=== PATIENT | male | born 1985 | race Caucasian/White ===

== ENCOUNTER 2020-01-21 10:54 | Emergency (ER) | payer SELFPAY ==
--- NOTE | 2020-01-21 11:22 | ER Document Report ---
ED Extremity Problem, Lower - General Chief Complaint: Knee Injury Stated Complaint: LEFT KNEE PAIN, SWELLING Time Seen by Provider: 01/21/20 11:16 Primary Care Provider: MARIA ISABEL GRADY JR, DO [ACTIVE PROVISIONAL STAFF] - Follow up in 3-5 days Mode of Arrival: Wheelchair Information source: Patient Notes: 34-year-old male presented to ED for complaint of left knee pain for few weeks. He states a few weeks ago he was jumping on a trampoline and injured his knee. He states he has not gotten better with [id number] treatment. He states he came to the emergency room today to find out why his knee is swollen and very painful. He is alert oriented respirations regular and unlabored speaking in full sentences. He does have a history of multiple fractures to fingers elbows scapula ankles wrist ribs but is not had any surgeries. He does smoke 3 to 4 cigarettes a day does not drink or do any street drugs. - HPI Patient complains to provider of: Injury, Pain, Swelling Location: Knee - Left Occurred: Other - Few weeks Where: Outdoors, Other - Sisters house Onset/Duration: Gradual Quality of pain: Pressure Severity: Severe Pain Level: 5 Context: Fell Recent injury: Yes Associated symptoms: Painful ambulation Exacerbated by: Hanging down, Movement, Walking Relieved by: Elevation, Ice - Related Data Allergies/Adverse Reactions: No Known Allergies Allergy (Verified 01/21/20 11:12) Past Medical History - General Information source: Patient - Social History Smoking Status: Current Every Day Smoker Cigarette use (# per day): Yes - 3 to 4 cigarettes a day Chew tobacco use (# tins/day): No Smoking Education Provided: Yes - 4 minutes Frequency of alcohol use: None Drug Abuse: None Lives with: Family Family History: Reviewed & Not Pertinent Patient has homicidal ideation: No - Past Medical History Cardiac Medical History: Reports: None Pulmonary Medical History: Reports: None EENT Medical History: Reports: None Neurological Medical History: Reports: None Endocrine Medical History: Reports: None Renal/ Medical History: Reports: None Malignancy Medical History: Reports None GI Medical History: Reports: None Musculoskeletal Medical History: Reports Hx Musculoskeletal Trauma Skin Medical History: Reports None Psychiatric Medical History: Reports: None Traumatic Medical History: Reports: Hx Fractures - Fingers toes elbow scapular ankle wrist and ribs Infectious Medical History: Reports: None Surgical Hx: Negative Past Surgical History: Reports: None - Immunizations Immunizations up to date: Yes Hx Diphtheria, Pertussis, Tetanus Vaccination: Yes Review of Systems - Review of Systems Constitutional: No symptoms reported EENT: No symptoms reported Cardiovascular: No symptoms reported Respiratory: No symptoms reported Gastrointestinal: No symptoms reported Genitourinary: No symptoms reported Male Genitourinary: No symptoms reported Musculoskeletal: Joint pain - Pain and swelling to the left knee, Joint swelling - Left knee Skin: No symptoms reported Hematologic/Lymphatic: No symptoms reported Neurological/Psychological: No symptoms reported -: Yes All other systems reviewed and negative Physical Exam - Vital signs Vitals: Temp Pulse Resp BP Pulse Ox 98.5 F 65 20 116/73 97 01/21/20 10:59 01/21/20 10:59 01/21/20 10:59 01/21/20 10:59 01/21/20 10:59 Interpretation: Normal - General General appearance: Appears well, Alert - HEENT Head: Normocephalic, Atraumatic Eyes: Normal Pupils: PERRL - Respiratory Respiratory status: No respiratory distress Chest status: Nontender Breath sounds: Normal Chest palpation: Normal - Cardiovascular Rhythm: Regular Heart sounds: Normal auscultation Murmur: No - Abdominal Inspection: Normal Distension: No distension Bowel sounds: Normal Tenderness: Nontender Organomegaly: No organomegaly - Back Back: Normal, Nontender - Extremities General upper extremity: Normal inspection, Nontender, Normal color, Normal ROM, Normal temperature General lower extremity: Normal color, Normal temperature. No: Jacob's sign Knee: Tender - Left, Joint effusion, Pain with ROM - Left, Patellar tendon intact, Tender joint line - Left. No: Deformity, Dislocation, Drawer's test instability, Ecchymosis, Instability, Laceration, Laxity with valgus stress, Laxity with varus stress, Popliteal fossa tender - Neurological Neuro grossly intact: Yes Cognition: Normal Orientation: AAOx4 Townley Coma Scale Eye Opening: Spontaneous Townley Coma Scale Verbal: Oriented Fabien Coma Scale Motor: Obeys Commands Fabien Coma Scale Total: 15 Speech: Normal Motor strength normal: LUE, RUE, LLE, RLE Sensory: Normal - Psychological Associated symptoms: Normal affect, Normal mood - Skin Skin Temperature: Warm Skin Moisture: Dry Skin Color: Normal Course - Re-evaluation Re-evalutation: 01/21/20 12:42 Discussed x-ray with patient and report of x-ray given to patient. Patient does have a knee effusion. It shows possible internal knee injuries. I have d iscussed this with patient and informed him that he really needs to follow-up with orthopedics and have a possible MRI to find out what the injuries are to his knee. Has been treated with crutches and knee immobilizer at this time and highly recommended that he follow-up with orthopedics as instructed. - Vital Signs Vital signs: Temp Pulse Resp BP Pulse Ox 98.2 F 64 14 128/74 H 99 01/21/20 12:33 01/21/20 12:33 01/21/20 12:33 01/21/20 12:33 01/21/20 12:33 - Diagnostic Test Radiology reviewed: Image reviewed, Reports reviewed Procedures - Immobilization Left Knee Time completed: 12:42 Pre-Proc Neuro Vasc Exam: Normal Immobilizer type: Crutches, Knee immobilizer Performed by: RN Post-Proc Neuro Vasc Exam: Normal Alignment checked and good: Yes Discharge - Discharge Clinical Impression: Effusion, left knee Left knee injury Qualifiers: Encounter type: initial encounter Qualified Code(s): S89.92XA - Unspecified injury of left lower leg, initial encounter Condition: Stable Disposition: HOME, SELF-CARE Additional Instructions: SUSPECTED INTERNAL KNEE INJURY: The examiner of your injured knee suspects an internal injury to the cartilage or internal ligaments. This must be further investigated by an senior accounting specialist. The knee should be protected, ice packed, and elevated while awaiting your follow-up exam by the orthopedist. If there is severe swelling, severe pain, or any new symptoms while awaiting your exam, you should call the orthopedist. (If he/she is unavailable, call us or return for re-examination.) Knee Effusion You have a fluid collection in the knee joint, called an effusion. This fluid build up can occur from irritation of the synovial membrane lining the knee joint or from a more serious injury to the knee. Irritation of the membrane can occur from excessive, repetitive knee activitiy, like kneeling or squatting for extended periods or even just excessive walking, jogging, or skiing. Effusions also can occur with infections in the joint and with some arthritic conditions, especially gout. Fluid collections in these situations are usually yellow in color and either clear or cloudy in appearance. Significant injury to the knee can result in fluid collection which is partly or entirely blood and this condition is known as a hemarthrosis of the knee joint. If the fluid collection is not too large and/or painful, it can be managed conservatively with rest, ice packs, and anti-inflammatory and pain medications as needed. If the fluid collection is large and very painful, the knee joint can be drained (aspirated) by a relatively minor procedure of inserting a needle in the joint and removing some or all of the fluid present. If your knee was aspirated, you should rest it as much as possible for a few days, keep a pressure dressing around the knee and apply ice packs for at least 48 - 72 hours. If there are signs of developing infection such as heat and redness of the knee, fever, etc. you should return immediately for a recheck. KNEE IMMOBILIZING SPLINT: The knee immobilizing splint will protect the injury while healing begins. This type of splint does not allow the knee to bend at all. No running or sports will be possible. If the splint allows painfree walking, it's giving adequate protection. If there is still significant pain, crutches may be needed as well. Don't do anything that hurts. Adjusted the splint, if necessary. The stiffeners on the sides are attached with Velcro, so they can be easily moved to adjust for thigh and calf size. If you need help with these adjustments, come back. You will lose muscle strength in the thigh while using this splint. The doctor will advise you if it's safe to do isometric knee exercises while you use it. USE OF CRUTCHES: The doctor has recommended that you not bear weight at this time. You will need to use crutches. Adjust the crutches so the tops come to about two inches under the armpit while you are standing upright. Use your hands -- not your armpits -- to support your weight. To get into a chair, support yourself with one crutch on the injured side. Hold the chair with the other hand, then lower yourself while putting all your weight on the good leg. Going up stairs is `good leg up, step up, then bring up crutches and bad leg.' Down stairs is `bad leg and crutches down, then bring good leg down.' If you develop numbness or swelling in an arm or hand, you are using the crutches incorrectly. Return if you are having any problems with the crutches. ICE & ELEVATION: Apply ice packs frequently against the painful area. Many different schedules are recommended, such as "20 minutes on, 20 minutes off" or "one hour ice, two hours rest." If you need to work, you may need to go longer between ice treatments. You should plan to have the area ice packed AT LEAST one-fourth of the time. The ice should be applied over the wrap, tape, or splint, or over a layer of cloth -- not directly against the skin. Some ice bags have a built-in cloth and can be put directly on the skin. Your injured part should be elevated as much as possible over the next 48 hours. Try to keep the injury above the level of the heart. Avoid use of the injured area. Elevation and rest will decrease the swelling. USE OF [id number] IBUPROFEN: Ibuprofen (Advil, Nuprin, Medipren, Motrin IB) is a medication for fever and pain control. In addition, it has anti- inflammatory effects which may be beneficial, especially in the treatment of injuries. It's best to take ibuprofen with food. Persons with ulcer disease or allergy to aspirin should notify their physician of this before taking ibuprofen. Ibuprofen can be given every four to six hours, for a total of four doses daily. Age Pain or fever dose Antiinflammatory dose 6-8 yr 200 mg (1 tab) 200 mg (1 tab) 9-11 yr 200 mg (1 tab) 200-400 mg (1-2 tab) 11-14 yr 200-400 mg (1-2 tab) 400 mg (2 tab) 15-adult 400 mg (2 tab) 600 mg (3 tab) FOLLOW-UP CARE: If you have been referred to a physician for follow-up care, call the physicians office for an appointment as you were instructed or within the next two days. If you experience worsening or a significant change in your symptoms, notify the physician immediately or return to the Emergency Department at any time for re-evaluation. Forms: Smoking Cessation Education, Return to Work Referrals: MARIA ISABEL GRADY JR, DO [ACTIVE PROVISIONAL STAFF] - Follow up in 3-5 days
--- NOTE | 2020-01-21 11:58 | RADIOLOGY REPORT (SQ) ---
EXAM DESCRIPTION: KNEE LEFT 4 VIEW IMAGES COMPLETED DATE/TIME: 01/21/2020 11:43 am REASON FOR STUDY: pain and swelling for 2 weeks COMPARISON: None. NUMBER OF VIEWS: Four views. TECHNIQUE: AP, lateral, and both oblique radiographic images acquired of the left knee. LIMITATIONS: None. FINDINGS: MINERALIZATION: Normal. BONES: No acute fracture or dislocation. JOINT: Joint effusion. The quadriceps and patellar tendon silhouettes are intact. SOFT TISSUES: No soft tissue swelling or radiopaque foreign body. OTHER: No other finding. IMPRESSION: Joint effusion without an associated acute osseous abnormality. Based on clinical findi ngs further evaluation with MRI could be pursued to exclude internal derangement. TECHNICAL DOCUMENTATION: JOB ID: [id number] 2010 [employer]- All Rights Reserved Reading location - IP/workstation name: [email or web address]
[2020-01-21 12:38] VITALS: BP 128/74
== END 2020-01-21 12:52 | disposition home or self-care (01) ==
LOC: ER 10:54
DX: S89.92XA Unspecified injury of left lower leg, initial encounter (principal); M25.562 Pain in left knee; M79.89 Other specified soft tissue disorders; F17.210 Nicotine dependence, cigarettes, uncomplicated; X58.XXXA Exposure to other specified factors, initial encounter; Y93.44 Activity, trampolining
CPT/HCPCS: 99283; 99406

== ENCOUNTER 2020-06-28 13:54 | Emergency (ER) | payer SELFPAY ==
[2020-06-28] MEDS ORDERED: HYDROCODONE/ACETAMINOPHEN 5-325 MG TABLET PO ONE (14:17)
[2020-06-28] MEDS ORDERED: CEPHALEXIN 500 MG CAPSULE PO ONE (14:25)
[2020-06-28] MEDS ORDERED: LIDOCAINE 1% INJ-PF (10 MG/ML) 30 ML SDV INJ ONE (14:25)
--- NOTE | 2020-06-28 14:27 | ER Document Report ---
HPI - HPI Patient complains to provider of: Lip laceration Time Seen by Provider: 06/28/20 14:13 Onset: This morning Onset/Duration: Persistent Quality of pain: Achy Pain Level: 2 Context: Patient states that he fell off a stepladder and hit a coffee table around 1:00 this morning. Patient with laceration to upper lip area. Patient reports tetanus immunizations currently up-to-date. Patient denies any other injury. No dental injury. No loss of consciousness. Patient denies any nausea or vomiting. Associated Symptoms: Other - Lip laceration. denies: Headache, Nausea, Vomiting Exacerbated by: Denies Relieved by: Denies Similar symptoms previously: No Recently seen / treated by doctor: No - ROS ROS below otherwise negative: Yes Systems Reviewed and Negative: Yes All other systems reviewed and negative - CONSTITUTIONAL Constitutional: DENIES: Fever - EENT Notes: Lip laceration - RESPIRATORY Respiratory: DENIES: Trouble Breathing, Coughing - GASTROINTESTINAL Gastrointestinal: DENIES: Nausea, Patient vomiting - MUSCULOSKELETAL Musculoskeletal: DENIES: Back Pain, Neck Pain - DERM Skin Color: Normal Skin Problems: Laceration Past Medical History - General Information source: Patient - Social History Smoking Status: Current Every Day Smoker Frequency of alcohol use: None Drug Abuse: None 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 Lives with: Family Family History: Reviewed & Not Pertinent Musculoskeletal Medical History: Reports Hx Musculoskeletal Trauma Traumatic Medical History: Reports: Hx Fractures - Fingers toes elbow scapular ankle wrist and ribs Surgical Hx: Negative - Immunizations Immunizations up to date: Yes Hx Diphtheria, Pertussis, Tetanus Vaccination: Yes Vertical Provider Document - CONSTITUTIONAL Agree With Documented VS: Yes - Reviewed vital signs written on chart Exam Limitations: No Limitations General Appearance: WD/WN, No Apparent Distress - HEENT HEENT: Normocephalic Notes: lip laceration middle segment of the upper lip - NECK Neck: Normal Inspection, Supple - RESPIRATORY Respiratory: Breath Sounds Normal, No Respiratory Distress - CARDIOVASCULAR Cardiovascular: Regular Rate, Regular Rhythm, No Murmur - BACK Back: Normal Inspection Notes: No cervical or spinal midline tenderness, step-off or deformity - MUSCULOSKELETAL/EXTREMETIES Musculoskeletal/Extremeties: LUZ ELENA SORTO - NEURO Level of Consciousness: Awake, Alert, Appropriate Motor/Sensory: No Motor Deficit - DERM Integumentary: Warm, Dry, Laceration - Laceration to the dry and wet vermilion border of the upper lip Procedures - Laceration/Wound Repair Face Wound length (cm): 2 Wound's Depth, Shape: Linear Anesthetic type: Other - infra orbital block Wound Repaired With: Sutures Suture Size/Type: Other - One 6-0 nylon suture to vermilion border, 5-0 Vicryl 1 deep suture to the fibrofatty tissue, 3 additional 5-0 Vicryl sutures to the dry and wet vermilion border of the lip Number of Sutures: 5 - 5 total, 1 deep Layer Closure?: Yes Deep Layer Suture Size/Type: 5:0, Other - vicryl Number Deep Layer Sutures: 1 Post-procedure NV exam normal: Yes Complications: No Adult Head Front/Back picture: 1 - lac Discharge - Discharge Clinical Impression: Lip laceration Qualifiers: Encounter type: initial encounter Qualified Code(s): S01.511A - Laceration without foreign body of lip, initial encounter Condition: Stable Disposition: HOME, SELF-CARE Instructions: Facial Laceration ([facility]), Prophylactic Antibiotic ([facility]) Additional Instructions: Return immediately for any new or worsening symptoms Followup with your primary care provider, call tomorrow to make a followup appointment Suture removal to the single black suture in 5 days, the other sutures are absorbable. If the other sutures have not dissolved after a week you can have those removed as well. Follow-up with plastic surgeon for any cosmetic concerns about the appearance of the wound. Forms: Return to Work Referrals: SAJI MEYER MD [ACTIVE STAFF] - Follow up as needed
== END 2020-06-28 15:44 | disposition home or self-care (01) ==
LOC: ER 13:54
DX: S01.511A Laceration without foreign body of lip, initial encounter (principal); W11.XXXA Fall on and from ladder, initial encounter; W22.09XA Striking against other stationary object, initial encounter; F17.200 Nicotine dependence, unspecified, uncomplicated
CPT/HCPCS: 99284; 12011; J3490